=== PATIENT | male | born 1970 | race Two or more races ===

== ENCOUNTER 2018-12-19 20:53 | Emergency (ER) | payer OTHER ==
[~2018-12-19] VITALS: Ht 172.7 cm; Wt 114.0 kg
[2018-12-19 20:58] VITALS: BP 152/60
== END 2018-12-19 22:32 | disposition left against medical advice (07) ==
LOC: ER 20:53
DX: M54.5 Low back pain (principal); Z53.21 Procedure and treatment not carried out due to patient leaving prior to being seen by health care provider